=== PATIENT | male | born 1990 | race African-American/Black ===

== ENCOUNTER 2016-06-18 23:50 | Emergency (ER) | payer SELFPAY ==
--- NOTE | ~2016-06-18 | EKG ---
PATIENT: FRANCES PINEDO UNIT #: [id number] Ventricular Rate: 70 BPM Atrial Rate: 70 BPM P-R Interval: 148 ms QRS Duration: 92 ms Q-T Interval: 402 ms QTC Calculation(Bezet): 434 ms P [place]: 77 degrees Calculated R [place]: 82 degrees Calculated T [place]: 77 degrees Diagnosis Line: Normal sinus rhythm with sinus arrhythmia Early Diagnosis Line: repolarization Diagnosis Line: Voltage criteria for left ventricular hypertrophy Diagnosis Line: Abnormal ECG Diagnosis Line: When compared with ECG of 18-JUN-2016 23:20, Diagnosis Line: (unconfirmed) Diagnosis Line: No significant change was found Diagnosis Line: Confirmed by LIDA SHERMAN MD ([id number]) on 06/19/2016 Diagnosis Line: 4:38:41 PM INTERPRETING MD: WHIT BHATIA
--- NOTE | ~2016-06-18 | CR141 ---
[facility] A Service of [facility] RADIOLOGY TEXT RESULTS PATIENT: FRANCES PINEDO LOCATION: [facility] [facility] : [id number] UNIT #: [id number] AGE: [address]: Luis Shepard MD SEX: M ORDER DR: [id number] [facility] [address] [place], [place] [address] [id number] E MR#: [id number] Acc #: [id number] NAME: FRANCES PINEDO : 1990 SEX: M STUDY DATE/TIME: 06/18/2016 23:25 UNIT: [facility] ROOM: STUDY DESCRIPTION: CR Hand Min 3 Views Lt Attending Physician: Luis Shepard M.D. Ordering Physician: Luis Shepard M.D. Primary Care Physician: Primary Care Physician No MEDICAL IMAGING REPORT This report is preliminary unless electronic signature is present EXAM Left hand 06/18/2016 INDICATION Pain and swelling of the left hand and knuckles. Injured playing basketball. Recent thumb injury same hand. TECHNIQUE 3 views. COMPARISON None. FINDINGS The examination is negative. There is no acute fracture. Soft tissues are within normal limits. IMPRESSION Negative. Dictated by... Tucker Champagne M.D. THIS IS AN ELECTRONICALLY VERIFIED REPORT Tucker Champagne M.D. at 06/22/2016 9:12 AM MARIO/cristi TD: 06/19/2016 08:03 JOB #: [id number] MEDICAL IMAGING REPORT Page 1 of 1 COPY
[2016-06-18 23:28] LABS: BASOPHIL# 0.1 X10e3 (0-0.3); BASOPHIL% 0.4 % (0-2.5); EOSINOPHIL# 0.1 X10e3 (0-0.7); EOSINOPHIL% 0.3 % (0.0-7.0); HEMATOCRIT 43.7 % (38.0-50.0); HEMOGLOBIN 14.3 gm/dL (13.0-16.0); LYMPHOCYTE# 1.6 X10e3 (1.0-3.5); LYMPHOCYTE% 10.2 % (17.0-45.0); MEAN CELL VOLUME 93.1 FL (83-96); MEAN CORPUSCULAR HEMOGLOBIN 30.4 PG (28-34); MEAN CORPUSCULAR HGB CONC 32.7 g/dL (30-36); MEAN PLATELET VOLUME 9.4 FL (6.5-11.5); MONOCYTE% 6.4 % (3.0-12.0); NEUTROPHIL# 12.6 X10e3 (1.5-7.1); NEUTROPHIL% 82.7 % (40-75); PLATELET COUNT 179 X10e3 (140-420); RED BLOOD COUNT 4.69 X10e (3.90-5.60); WHITE BLOOD COUNT 15.3 X10e3 (4.0-10.5)
[2016-06-18 23:29] LABS: DIFF IND YES
[2016-06-18 23:53] LABS: PLATELET ESTIMATE DECREASED (NORMAL); RBC NORMAL YES; SMUDGE CELLS 7 /100
[2016-06-18 23:55] LABS: POC - CKMB 1.8 ng/mL (0.0-7.9); POC - TROPONIN <0.05 ng/mL (<=0.05)
[2016-06-19 00:01] LABS: BUN/CREATININE RATIO 12.94; CALCIUM SERUM 9.9 mg/dL (8.4-10.2); CREATININE SERUM 1.7 mg/dL (0.6-1.4); GLOM FILT RATE Estimated 54.1 mL/min (>60)
[2016-06-19 01:25] LABS: URINE SOURCE CLEAN CATCH
[2016-06-19 01:32] LABS: URINE APPEARANCE CLOUDY; URINE BILIRUBIN NEG (NEG); URINE BLOOD NEG (NEG); URINE COLOR YELLOW; URINE GLUCOSE NEG (NEG); URINE KETONE 1+ (NEG); URINE LEUKOCYTE ESTERASE TRACE (NEG); URINE NITRATE NEG (NEG); URINE PH 5.5 (5-8); URINE PROTEIN 1+ (NEG); URINE SPECIFIC GRAVITY 1.028 (1.003-1.035)
[2016-06-19 01:35] LABS: URINE BACTERIA AUWI NEG (NEGATIVE); URINE SQUAMOUS EPITHELIAL CELL OCC /[HPF]
[2016-06-19 01:38] LABS: AMPHETAMINE NEG (NEG); BARBITURATES NEG (NEG); BENZODIAZEPINES NEG (NEG); COCAINE NEG (NEG); MARIJUANA POS (NEG); OPIATES NEG (NEG); TRICYCLIC ANTIDEPRESSANTS NEG (NEG); U METHADONE NEG (NEG)
== END 2016-06-19 02:40 | disposition home or self-care (01) ==
LOC: CED 23:50
PROVIDERS: Emergency Medicine
DX: E86.0 Dehydration (principal); N17.9 Acute kidney failure, unspecified; M62.82 Rhabdomyolysis; F17.210 Nicotine dependence, cigarettes, uncomplicated; F32.9 Major depressive disorder, single episode, unspecified
CPT/HCPCS: 36415; 73130; 80048; 80307; 81003; 82550; 82553; 82947; 84484; 85025; 93005; 96360; 96361; 99284